=== PATIENT | male | born 1985 | race Two or more races ===

== ENCOUNTER → 2024-10-05 | Outpatient (CLI) | payer BC, SELFPAY ==
[2024-10-05 09:53] LABS: Alanine Aminotransferase 107 U/L (10-49); Albumin, Serum 4.7 gm/dL (3.5-5.0); Albumin/Globulin Ratio 1.6 (1.2-2.2); Alkaline Phosphatase 75 U/L (46-116); Anion Gap 7 (7-16); Aspartate Amino Transferase 59 U/L (0-34); BUN/Creatinine Ratio 15 Ratio (12-20); Bilirubin,Total 0.7 mg/dL (0.3-1.2); Blood Urea Nitrogen 15 mg/dL (9-23); Carbon Dioxide 27.9 mMol/L (20.0-31.0); Cardiac Risk Estimate 5.6 RATIO (4.0-6.7); Chloride 102 mMol/L (98-107); Cholesterol 258 mg/dL (132-200); Glucose 121 mg/dL (74-106); HDL Cholesterol 46 mg/dL (40-60); LDL Cholesterol,Calculated 192 mg/dL (0-130); Osmolality,Calculated 275 (275-295); Potassium 4.8 mMol/L (3.4-5.1); Sodium 137 mMol/L (136-145); Total Protein 7.7 gm/dL (5.7-8.2); Triglycerides 98 mg/dL (30-150); eGFR > 60 See Note
== END | disposition home or self-care (01) ==
LOC: COPL 08:49
PROVIDERS: PCP Internal Medicine; Referring Provider Internal Medicine; Visit Provider Internal Medicine
DX: E78.5 Hyperlipidemia, unspecified (principal)
CPT/HCPCS: 36415; 80053; 80061

== ENCOUNTER → 2024-10-17 | Outpatient (CLI) | payer BC, SELFPAY ==
--- NOTE | 2024-10-17 16:30 | XR_ITS ---
Examination: Abdomen sonogram, Limited Date and time of exam: October 17, 2024 1613 hrs. Indications: Elevated liver function tests on laboratory examination October 05, 2024 Technique: Real-time vazquez scale transabdominal sonographic images of the upper abdomen obtained. Findings: Contracted gallbladder no stones Common bile duct 0.4 cm Pancreatic head 3.2 cm Liver 19 cm fatty infiltration no focal liver lesions Normal hepatopedal portal venous flow Patent IVC Impression: Recommend repeating the gallbladder portion of the study with fasting Moderate hepatomegaly fatty liver
== END | disposition home or self-care (01) ==
PROVIDERS: PCP Internal Medicine; Referring Provider Internal Medicine; Visit Provider Internal Medicine
DX: K76.0 Fatty (change of) liver, not elsewhere classified (principal)
CPT/HCPCS: 76705